=== PATIENT | female | born 1985 | race Caucasian/White ===

== ENCOUNTER 2017-02-06 15:51 | Emergency (ER) | payer BC, OTHER ==
[~2017-02-06] VITALS: Ht 154.9 cm; Wt 92.0 kg
[~2017-02-06 15:51] MED LIST: Docusate Sod/Senna PO; IBUP600 PO; PREN0.01 PO
[2017-02-06 15:53] VITALS: BP 134/70; PULSE 84; RESP 18; TEMP 98.4; O2SAT 98
--- NOTE | 2017-02-06 16:00 | PD ---
Physical Exam Date Seen by Provider: Feb 06, 2017 Time Seen by Provider: 15:58 Narrative 31 YOWF C/O CP THIS AM. SEEN IN [facility] AND SENT HOME FEELS THEY DIDN'T LISTEN. VS REVIEWED WAITING FOR BED PLACEMENT Data Data Last Documented VS Vital Signs Date Time Temp Pulse Resp B/P Pulse Ox O2 Delivery O2 Flow Rate FiO2 02/06/17 15:53 98.4 84 18 134/70 98 MDM Supervised Visit with JAKE: Matheus Denson Feb 06, 2017 16:00
[2017-02-06 18:39] VITALS: BP 135/79; PULSE 81; RESP 17; O2SAT 97
[2017-02-06] MEDS ORDERED: MECL-62 PO (18:40)
--- NOTE | 2017-02-06 18:44 | PD ---
HPI Chief Complaint: Chest Pain Time Seen by Provider: 18:35 Travel History International Travel<30 days: No Contact w/Intl Traveler<30days: No Traveled to known affect area: No History of Present Illness HPI 31-year-old female here for evaluation of chest pain and left upper quadrant abdominal pain. Symptoms started this morning after waking up when the patient felt a pop in this area. Since that time she has been having pain described as burning that radiates into her back and left shoulder. She reports that the pain is exertional. She states that she was seen at [facility] earlier today, had labs and a chest x-ray and was told that everything was normal and was discharged home. She feels as though they did not listen to her and she wants an answer as to why she is having the pain. No personal history of cardiac disease. There is family history of cardiac disease. No history of DVT or PE. PFSH Past Medical History Medical History: Denies Significant Hx High Cholesterol: Yes Diminished Hearing: No Tetanus Vaccination: < 5 Years ?: Not LMP: 02/05/17 Past Surgical History Surgical History: No Previous Surgery Social History Alcohol Use: No Tobacco Use: No Substance Use: No Allergies-Medications (Allergen,Severity, Reaction): Coded Allergies: prednisone (Unverified Allergy, Intermediate, 02/04/17) Uncoded Allergies: maxalt (Allergy, Severe, 05/02/14) NOVOCAINE (Allergy, Unknown, 03/09/14) Reported Meds & Prescriptions Reported Meds & Active Scripts Active Reported Meclizine (Meclizine HCl) 25 Mg Tab 25 Mg PO DIRECTED PRN Review of Systems Except as stated in HPI: all other systems reviewed are Neg Physical Exam Narrative GENERAL: Well-developed, well-nourished, overweight, comfortable, no apparent distress. SKIN: Focused skin assessment warm/dry. HEAD: Atraumatic. Normocephalic. EYES: Pupils equal and round. No scleral icterus. No injection or drainage. ENT: Mucous membranes pink and moist. NECK: Trachea midline. No JVD. CARDIOVASCULAR: Regular rate and rhythm. No murmur appreciated. RESPIRATORY: No accessory muscle use. Clear to auscultation. Breath sounds equal bilaterally. GASTROINTESTINAL: Abdomen soft, nondistended. Mild left upper quadrant tenderness without peritoneal signs. Rest of abdomen is soft and nontender. Normal bowel sounds. MUSCULOSKELETAL: No obvious deformities. No clubbing. No cyanosis. No edema. NEUROLOGICAL: Awake and alert. No obvious cranial nerve deficits. Motor grossly within normal limits. Normal speech. PSYCHIATRIC: Appropriate mood and affect; insight and judgment normal. Data Data Last Documented VS Vital Signs Date Time Temp Pulse Resp B/P Pulse Ox O2 Delivery O2 Flow Rate FiO2 02/06/17 19:17 72 18 116/71 99 Room Air 02/06/17 15:53 98.4 Orders Electrocardiogram (02/06/17 16:00) Complete Blood Count With Diff (02/06/17 18:40) Comprehensive Metabolic Panel (02/06/17 18:40) Act Partial Throm Time (Ptt) (02/06/17 18:40) Prothrombin Time / Inr (Pt) (02/06/17 18:40) Ckmb (Isoenzyme) Profile (02/06/17 18:40) Troponin I (02/06/17 18:40) Iv Access Insert/Monitor (02/06/17 18:40) Ecg Monitoring (02/06/17 18:40) Oximetry (02/06/17 18:40) Oxygen Administration (02/06/17 18:40) Ct Pulmonary Angiogram (02/06/17 18:40) Sodium Chloride 0.9% Flush (Ns Flush) (02/06/17 18:45) Ketorolac Inj (Toradol Inj) (02/06/17 18:45) Pantoprazole Inj (Protonix Inj) (02/06/17 18:45) Lipase (02/06/17 18:40) Ed Urine Pregnancytest Poc (02/06/17 19:05) Iohexol 350 Inj (Omnipaque 350 Inj) (02/06/17 20:17) Labs Laboratory Tests Test 02/06/17 18:55 White Blood Count 9.9 TH/MM3 Red Blood Count 4.44 MIL/MM3 Hemoglobin 11.4 GM/DL Hematocrit 35.5 % Mean Corpuscular Volume 79.9 FL Mean Corpuscular Hemoglobin 25.7 PG Mean Corpuscular Hemoglobin 32.2 % Concent Red Cell Distribution Width 15.1 % Platelet Count 285 TH/MM3 Mean Platelet Volume 8.6 FL Neutrophils (%) (Auto) 62.8 % Lymphocytes (%) (Auto) 27.6 % Monocytes (%) (Auto) 8.6 % Eosinophils (%) (Auto) 0.7 % Basophils (%) (Auto) 0.3 % Neutrophils # (Auto) 6.2 TH/MM3 Lymphocytes # (Auto) 2.7 TH/MM3 Monocytes # (Auto) 0.8 TH/MM3 Eosinophils # (Auto) 0.1 TH/MM3 Basophils # (Auto) 0.0 TH/MM3 CBC Comment DIFF FINAL Differential Comment Prothrombin Time 10.7 SEC Prothromb Time International 1.0 RATIO Ratio Activated Partial 26.7 SEC Thromboplast Time Sodium Level 141 MEQ/L Potassium Level 4.0 MEQ/L Chloride Level 109 MEQ/L Carbon Dioxide Level 28.2 MEQ/L Anion Gap 4 MEQ/L Blood Urea Nitrogen 9 MG/DL Creatinine 0.72 MG/DL Estimat Glomerular Filtration 93 ML/MIN Rate Random Glucose 88 MG/DL Calcium Level 8.3 MG/DL Total Bilirubin 0.2 MG/DL Aspartate Amino Transf 19 U/L (AST/SGOT) Alanine Aminotransferase 26 U/L (ALT/SGPT) Alkaline Phosphatase 83 U/L Total Creatine Kinase 83 U/L Troponin I LESS THAN 0.02 NG/ML Total Protein 6.5 GM/DL Albumin 3.4 GM/DL Lipase 122 U/L [facility] Medical Decision Making Medical Screen Exam Complete: Yes Emergency Medical Condition: Yes Medical Record Reviewed: Yes Interpretation(s) EKG: Sinus, rate 68, normal axis, normal intervals, low QRS voltages in limb leads, no acute ischemic abnormality. Differential Diagnosis ACS, pneumothorax, peritonitis, PE, pneumonia, gastritis, peptic ulcer disease, pancreatitis, Narrative Course Vital signs show heart rate 84, blood pressure 134/70, pulse ox 98% on room air , oral temp of 98.4F. CBC shows WBC 9.9, hemoglobin 11.4, hematocrit 35.5, platelets 285. CMP is unremarkable. Lipase is 122. Urine is negative. Cardiac enzymes are negative. CT pulmonary angiogram: Normal exam for patient of this age. Patient made aware of all findings. She was given a dose of Toradol and Protonix with some improvement in her pain. She does have some left upper quadrant abdominal tenderness. I believe that this is likely secondary to gastritis or peptic ulcer disease. I do not believe that there is an acute intra-abdominal process to warrant imaging of her abdomen at this time. I do not believe her symptoms are cardiac in nature. I explained all findings with the patient, and I have advised her to follow up as an outpatient with a primary care physician this week. Patient informed on when to return to the emergency department. She verbalizes understanding and agreement with plan. Diagnosis Primary Impression: Atypical chest pain Additional Impression: LUQ abdominal pain Referrals: [facility] Primary Care Physician 3 days Additional Instructions: Follow-up with a primary care physician this week. Return to the emergency department for worsening symptoms or any other concerns. Scripts Pantoprazole (Protonix)40 Mg Tab40 Mg PO DAILY #30 TAB Ref 0 Prov:Wali Sands MD 02/06/17 Disposition: 01 DISCHARGE HOME Condition: Stable Wali Sands MD Feb 06, 2017 18:44
[2017-02-06] MEDS ORDERED: PANTOPRAZOLE SODIUM 40 MG VIAL IV PUSH ONE (18:45)
[2017-02-06] MEDS ORDERED: KETOROLAC TROMETHAMINE 30 MG/ML (IVP) VIAL IV PUSH ONE (18:45)
[2017-02-06] MEDS ORDERED: SODIUM CHLORIDE 0.9% FLUSH 10 ML FLUSH IVF PRN (18:45)
[2017-02-06 18:55] VITALS: O2SAT 100
[2017-02-06 19:17] VITALS: BP 116/71; PULSE 72; RESP 18; O2SAT 99
[2017-02-06 19:28] LABS: AUTOMATED NEUTROPHIL # 6.2 TH/MM3 (1.8-7.7); BASOPHIL % 0.3 % (0.0-2.0); EOSINOPHIL # 0.1 TH/MM3 (0-0.4); EOSINOPHIL % 0.7 % (0.0-4.0); HEMATOCRIT 35.5 % (35.0-46.0); HEMO FLAGS DIFF FINAL; LYMPH % 27.6 % (9.0-44.0); LYMPHOCYTE # 2.7 TH/MM3 (1.0-4.8); MEAN CELL VOLUME 79.9 FL (80.0-100.0); MEAN CORPUSCULAR HEMOGLOBIN 25.7 PG (27.0-34.0); MEAN CORPUSCULAR HGB CONC 32.2 % (32.0-36.0); MONO % 8.6 % (0.0-8.0); NEUT % 62.8 % (16.0-70.0); PLATELET COUNT 285 TH/MM3 (150-450); RED BLOOD COUNT 4.44 MIL/MM3 (4.00-5.30); RED CELL DISTRIBUTION WIDTH 15.1 % (11.6-17.2); WHITE BLOOD COUNT 9.9 TH/MM3 (4.0-11.0)
[2017-02-06 19:31] LABS: ALT (GPT) 26 U/L (10-53); ANION GAP 4 MEQ/L (5-15); AST (GOT) 19 U/L (15-37); BICARBONATE 28.2 MEQ/L (21.0-32.0); BLOOD UREA NITROGEN 9 MG/DL (7-18); CHLORIDE 109 MEQ/L (98-107); GLOMERULAR FILTRATION RATE 93 ML/MIN (>89); SODIUM (NA) 141 MEQ/L (136-145)
[2017-02-06 19:35] LABS: APTT (PATIENT) 26.7 SEC (24.3-30.1); PROTHROMBIN TIME - PATIENT 10.7 SEC (9.8-11.6)
[2017-02-06 19:36] LABS: ALKALINE PHOSPHATASE 83 U/L (45-117); TOTAL BILIRUBIN ADULT 0.2 MG/DL (0.2-1.0)
[2017-02-06 19:56] LABS: CREATINE KINASE 83 U/L (26-192)
[2017-02-06] MEDS ORDERED: IOHEXOL 350 MG/ML 10 ML VIAL (for RAD DIAG) IV ONE (20:17)
--- NOTE | 2017-02-06 20:56 | RADRPT ---
EXAM DATE/TIME: 02/06/2017 20:11 [facility] COMPARISON: No previous studies available for comparison. INDICATIONS : Chest pain that radiates to the back since yesterday. IV CONTRAST: 55 cc Omnipaque 350 (iohexol) IV RADIATION DOSE: 17.48 CTDIvol (mGy) MEDICAL HISTORY : None SURGICAL HISTORY : None. ENCOUNTER: Initial ACUITY: 1 day PAIN SCALE: 6/10 LOCATION: Bilateral chest TECHNIQUE: Volumetric scanning of the chest was performed using a pulmonary embolism protocol MIP images were re constructed. Using automated exposure control and adjustment of the mA and/or kV according to patien t size, radiation dose was kept as low as reasonably achievable to obtain optimal diagnostic quality images. DICOM format image data is available electronically for review and comparison. Follow-up recommendations for detected pulmonary nodules are based at a minimum on nodule size and pa tient risk factors according to Fleischner Society Guidelines. FINDINGS: PULMONARY ARTERIES: No filling defects are seen in the pulmonary arteries through the segmental level. LUNGS: There is no consolidation or pneumothorax . No concerning pulmonary nodule is visualized. PLEURAE: There is no pleural thickening or pleural effusion. MEDIASTINUM: There is good visualization of the great vessels of the middle mediastinum. No evidence of mediastin al or hilar adenopathy/mass. MUSCULOSKELETAL: Within normal limits for patient age. MISCELLANEOUS: The visualized upper abdominal organs demonstrate no acute abnormality. CONCLUSION: Normal examination for a patient of this age. Matheus Loredo MD on February 06, 2017 at 20:48 Board Certified Radiologist. This report was verified electronically.
[2017-02-06] MEDS ORDERED: PROT40TA PO (21:14)
[2017-02-06 21:39] VITALS: BP 122/88; PULSE 72; RESP 18; O2SAT 100
--- NOTE | 2017-02-07 14:41 | EKG ---
Date Performed: 02/06/2017 Time Performed: 16:15:19 PTAGE: 31 years EKG: Sinus rhythm LOW QRS VOLTAGE ABNORMAL ECG NO PREVIOUS TRACING DOCTOR: Kar Rodriguez Interpretating Date/Time 02/07/2017 14:36:21
== END 2017-02-06 21:41 | disposition home or self-care (01) ==
LOC: NEPD 15:51
DX: R07.89 Other chest pain (principal); R10.12 Left upper quadrant pain; R94.31 Abnormal electrocardiogram [ECG] [EKG]; E78.00 Pure hypercholesterolemia, unspecified; Z79.899 Other long term (current) drug therapy
CPT/HCPCS: 71275; 80053; 82550; 83690; 84484; 84703; 85025; 85610; 85730; 93005; 96374; 96375; 99285; C9113; J1885; Q9967